=== PATIENT | female | born 2000 | race Caucasian/White ===

== ENCOUNTER 2021-03-08 15:57 | Emergency (ER) | payer BC, SELFPAY ==
[2021-03-08 15:58] VITALS: BP 169/117; PULSE 138; RESP 28; TEMP 36.1; O2SAT 96; BMI 46.5
--- NOTE | 2021-03-08 17:31 | EKG12_ITS ---
Test Reason : DKA Blood Pressure : / mmHG Vent. Rate : 113 BPM Atrial Rate : 113 BPM P-R Int : 116 ms QRS Dur : 082 ms QT Int : 322 ms P-R-T Axes : 033 050 000 degrees QTc Int : 441 ms Sinus tachycardia Otherwise normal ECG Confirmed by ELOY MCCAIN, PAT ([id number]), research editor NOY SPENCE ([id number]) on 03/11/2021 8:54:21 AM Referred By: MARGARITO Confirmed By:CHRISTIAN LYONS MD
[2021-03-08 17:41] LABS: Bedside Glucose 239 mg/dL (70-110)
[2021-03-08] MEDS: 0.9% Normal Saline 1,000 ML 999 ML IV (17:54)
[2021-03-08 18:03] LABS: Absolute Neutrophil Count 5.7 X10^3/uL (2.0-7.7); Basophil# 0.06 X10^3/uL; Basophil% 0.6 % (0-1); Hematocrit 43.7 % (37-47); Hemoglobin 14.1 g/dL (12.0-15.0); Lymphocyte % 33.5 % (19-41); Mean Corp Hgb Conc 32.3 g/dL (32-36); Mean Corpuscular Hgb 27.6 pg (27.0-32.0); Mean Corpuscular Volume 85.7 fL (81-99); Mean Platelet Vol. 9.7 fl (6.2-12.0); Monocyte# 0.67 X10^3/uL; Monocyte% 6.8 % (0-10); NRBC Flagged by Analyzer 0 % (0-5); Neutrophil # 5.66 X10^3/uL (2.7-7.7); Neutrophil % 57.6 % (47-70); Platelet Count 429 K/mm3 (150-450); RBC Distribution Width CV 12.5 % (11.6-14.6); RBC Distribution Width SD 38.7 fl (35.1-43.9); White Blood Count 9.8 K/mm3 (4.4-11.0)
[2021-03-08 18:08] VITALS: PULSE 110; RESP 32; O2SAT 97
[2021-03-08 18:09] LABS: Color, Urine Amber (Yellow); Glucose, Dipstick 250 mg/dl (Normal); Ketone-Dipstick 15 mg/dl (Negative); Leukocyte Esterase-Dipstick 25 /ul (Negative); Nitrite-Dipstick Positive (Negative); Occult Blood-Urine 250 /ul (Negative); Protein-Dipstick 500 mg/dl (Negative); Specific Gravity, Urine 1.025 (1.002-1.030); Urine Clarity Sl. Cloudy (Clear); Urine Urobilinogen 4 mg/dl (Normal)
[2021-03-08 18:13] LABS: Urine Bilirubin Dipstick 1 mg/dL (Negative)
[2021-03-08 18:15] LABS: Bacteria 1+ /hpf (None Seen); Mucous, Urine 1+ /hpf (<or=2+); Red Blood Cells-Urine > 100 SEEN /hpf (0-5); Squamous Epithelial Cells - UA 0-5 SEEN /hpf (5-10); White Blood Cells 0-5 SEEN /hpf (0-5)
[2021-03-08 18:23] LABS: AST(SGOT) 97 U/L (15-37); Alanine Aminotransfer ALT/SGPT 108 U/L (13-56); Albumin, Serum 4.3 g/dL (3.2-5.0); Alkaline Phosphatase 72 U/L (45-117); Anion Gap 12 (5-15); BUN 11 mg/dL (7-18); BUN/Creat Ratio 10.9 RATIO (10-20); Calcium,Total 9.9 mg/dL (8.5-10.1); Chloride 105 mmol/L (98-107); Creatinine, Serum 1.01 mg/dL (0.55-1.02); EST Glomerular Filtration Rate 74 mL/min (>60); Est Glom Filt Rate - Afr Amer 90 mL/min (>60); Estimated Creatinine Clearance 80.62 ml/min; Globulin 4.5 g/dL (2.2-4.2); Glucose 248 mg/dL (74-106); Magnesium 2.1 mg/dL (1.6-2.6); Potassium 3.9 mmol/L (3.5-5.1); Protein, Total 8.8 g/dL (6.4-8.2); Sodium Level 138 mmol/L (136-145); Troponin-I HS 4 pg/mL (3.0-54.0)
[2021-03-08] MEDS: Nitrofurantoin Macrocrystals 100 MG Capsule PO (18:41)
[2021-03-08 19:11] LABS: Bedside Glucose 212 mg/dL (70-110)
[2021-03-08 19:38] VITALS: PULSE 94; TEMP 36.7; O2SAT 99
--- NOTE | 2021-03-09 00:35 | EDS_ITS ---
HPI History of Present Illness Chief Complaint: General Illness Narrative Narrative: 20-year-old female presenting with hyperglycemia. She was referred here by saw her at school Dr. Coffey who started her on medications for her new onset diabetes but after obtaining blood work on her her anion gap was 2 over so we sent her to the emergency room. She states she had some nausea and vomited once yesterday. She states that she has been having problems with extensive vaginal bleeding and she saw her [employer] who put her on norethindrone. This has been improving but she states that she has urinary frequency. She had her urine tested and this showed glucose in the urine and she was referred for blood work which showed that she had new onset diabetes and she was noted to be hypertensive. She was started on lisinopril for her high blood pressure. She was also given oral antihyperglycemic's. She had just picked these up for she came. [facility] Medical History Vaginal bleeding Home Medications nitrofurantoin monohyd/m-cryst [Macrobid] 100 mg PO Q12H 5 Days #10 cap 03/08/21 [Rx Last Taken Unknown] norethindrone (contraceptive) 5 mg PO/SL DAILY 03/08/21 [History Last Taken Unknown] Allergy/AdvReac Type Severity Reaction Status Date / Time cefdinir Allergy Rash Verified 03/08/21 16:01 Surgical History History of tonsillectomy Social History Smoking Status: Current some day smoker tobacco type: e-cigarettes ROS ROS ED Constitutional Constitutional ED: Denies chills or fever(s) Eyes Eyes: Denies blurry vision or change in vision ENT ENT ED: Denies rhinorrhea or sore throat Cardiovascular Cardiovascular: Denies chest pain or palpitations Respiratory/Chest Respiratory/Chest: Denies cough or dyspnea Gastrointestinal Gastrointestinal: Reports nausea and vomiting; Denies abdominal pain Genitourinary Genitourinary ED: Reports dysuria and urinary frequency Musculoskeletal Musculoskeletal: Denies arthralgias or myalgias Integumentary Denies abscess or rash Neurologic Neurologic: Denies headache(s) or paresthesias Endocrine Endocrinology: Denies polydipsia, polyphagia or polyuria EXAM Physical Exam Const Vital Signs: 03/08/21 15:58 03/08/21 17:03 03/08/21 18:08 Temperature 97 F L Temperature Source Temporal Pulse Rate 138 H 110 H Respiratory Rate 28 H 32 H Respiratory Effort Normal Respiratory Pattern Normal Blood Pressure 169/117 H Blood Pressure Mean 134 Pulse Ox 96 97 Oxygen Delivery Method Room Air 03/08/21 19:38 Temperature 98.1 F Temperature Source Pulse Rate 94 Respiratory Rate Respiratory Effort Respiratory Pattern Blood Pressure Blood Pressure Mean Pulse Ox 99 Oxygen Delivery Method Positive well nourished General Appearance ED: NAD; Negative for pallor HEENT Reports moist mucous membranes Negative for trauma Eyes PERRL and EOMs intact bilaterally Chest Wall inspection of chest normal Resp normal respiratory effort and clear to auscultation bilaterally Cardio regular rate and regular rhythm GI normal to inspection, nondistended, normoactive bowel sounds Neuro oriented x3 and CN's II-XII intact bilaterally Sensorium / Orientation: alert Psych Mood & Affect: tearful Skin no rashes or lesions noted General Skin Exam: Negative for jaundice or pallor MDM MDM MDM Narrative Medical decision making narrative: Patient noted to be significantly tachycardic. When I entered the room she was tearful because she did not know why she was here. She states that Dr. Coffey apparently tried to call her and after 30 minutes did not hear from her and sent security from the [employer] to her room and and she was referred to the ER. She has her medications here. I reviewed her blood work and she did have some urine ketones and thousand glucose in her urine. Her anion gap was only 2 over. She is not having polyuria polydipsia polyphagia. I spoke with Dr. Coffey who had concern that she would not have follow-up over the weekend and wanted to make sure that her anion gap but not gotten worse. Patient tested here today and her CBC is normal. BMP does not show any anion gap her glucose is 248. Her AST is 97 ALT is 108 otherwise is normal. Troponin is normal. EKG on my interpretation on my interpretation shows a sinus rhythm ventricular rate of 113 bpm without sign of ischemic change or dysrhythmia. I did recheck her urine because she is symptomatic and this is positive for nitrites and patient is started on Macrobid for UTI. After a liter of fluids her heart rate is now 94 since her anion gap is closed I recommended that she start her oral diabetic medication. I did speak with her Dr. Coffey again and he is comfortable for follow-up outpatient next week. Patient will be discharged home in stable condition. Impression: 1. New onset diabetes 2. UTI Lab Data Attestation: I reviewed the patient's lab results. Labs: Laboratory Results - last 24 hr 03/08/21 03/08/21 03/08/21 17:33 17:50 17:50 WBC RBC Hgb Hct MCV MCH MCHC RDW Std Deviation RDW Coeff of Solo Plt Count MPV Immature Gran % (Auto) Neut % (Auto) Lymph % (Auto) [place] % (Auto) Eos % (Auto) Baso % (Auto) Absolute Neuts (auto) Absolute Lymphs (auto) Nucleated RBC % Sodium 138 Potassium 3.9 Chloride 105 Carbon Dioxide 21.0 Anion Gap 12 BUN 11 Creatinine 1.01 Estim Creat Clear Calc 80.62 Est GFR (MDRD) Af Amer 90 Est GFR (MDRD) Non-Af 74 BUN/Creatinine Ratio 10.9 Glucose 248 H Calcium 9.9 Magnesium 2.1 Total Bilirubin 0.70 AST 97 H ALT 108 H Alkaline Phosphatase 72 Troponin I High Sens 4 Total Protein 8.8 H Albumin 4.3 Globulin 4.5 H Albumin/Globulin Ratio 1.0 Urine Color Urine Clarity Urine pH Ur Specific [place] Urine Protein Urine Glucose (UA) Urine Ketones Urine Occult Blood Urine Nitrite Urine Bilirubin Urine Urobilinogen Ur Leukocyte Esterase Urine RBC Urine WBC Ur Squamous Epith Cells Urine Bacteria Urine Mucus Acetone Level NEGATIVE POC Glucose 239 H 03/08/21 03/08/21 03/08/21 17:50 17:50 17:50 WBC 9.8 RBC 5.10 Hgb 14.1 Hct 43.7 MCV 85.7 MCH 27.6 MCHC 32.3 RDW Std Deviation 38.7 RDW Coeff of Solo 12.5 Plt Count 429 MPV 9.7 Immature Gran % (Auto) 0.500 Neut % (Auto) 57.6 Lymph % (Auto) 33.5 [place] % (Auto) 6.8 Eos % (Auto) 1.0 Baso % (Auto) 0.6 Absolute Neuts (auto) 5.7 Absolute Lymphs (auto) 3.30 Nucleated RBC % 0 Sodium Cancelled Potassium Cancelled Chloride Cancelled Carbon Dioxide Cancelled Anion Gap Cancelled BUN Cancelled Creatinine Cancelled Estim Creat Clear Calc Cancelled Est GFR (MDRD) Af Amer Cancelled Est GFR (MDRD) Non-Af Cancelled BUN/Creatinine Ratio Cancelled Glucose Cancelled Calcium Cancelled Magnesium Total Bilirubin AST ALT Alkaline Phosphatase Troponin I High Sens Total Protein Albumin Globulin Albumin/Globulin Ratio Urine Color [place] Urine Clarity Sl. Cloudy Urine pH 6.0 Ur Specific [place] 1.025 Urine Protein 500 H Urine Glucose (UA) 250 H Urine Ketones 15 H Urine Occult Blood 250 H Urine Nitrite Positive H Urine Bilirubin 1 H Urine Urobilinogen 4 H Ur Leukocyte Esterase 25 H Urine RBC > 100 SEEN Urine WBC 0-5 SEEN Ur Squamous Epith Cells 0-5 SEEN Urine Bacteria 1+ Urine Mucus 1+ Acetone Level POC Glucose 03/08/21 19:07 WBC RBC Hgb Hct MCV MCH MCHC RDW Std Deviation RDW Coeff of Solo Plt Count MPV Immature Gran % (Auto) Neut % (Auto) Lymph % (Auto) [place] % (Auto) Eos % (Auto) Baso % (Auto) Absolute Neuts (auto) Absolute Lymphs (auto) Nucleated RBC % Sodium Potassium Chloride Carbon Dioxide Anion Gap BUN Creatinine Estim Creat Clear Calc Est GFR (MDRD) Af Amer Est GFR (MDRD) Non-Af BUN/Creatinine Ratio Glucose Calcium Magnesium Total Bilirubin AST ALT Alkaline Phosphatase Troponin I High Sens Total Protein Albumin Globulin Albumin/Globulin Ratio Urine Color Urine Clarity Urine pH Ur Specific [place] Urine Protein Urine Glucose (UA) Urine Ketones Urine Occult Blood Urine Nitrite Urine Bilirubin Urine Urobilinogen Ur Leukocyte Esterase Urine RBC Urine WBC Ur Squamous Epith Cells Urine Bacteria Urine Mucus Acetone Level POC Glucose 212 H Discharge Plan Triage Chief Complaint: General Illness ED Provider: Mann Mccrary Dx/Rx/DC Orders Instructions: ED Diabetes- Overview, ED Diabetic Hyperglycemia, ED CYSTITIS Female Adult Prescriptions: New nitrofurantoin monohyd/m-cryst [Macrobid] 100 mg capsule 100 mg PO Q12H 5 Days Qty: 10 RF: 0 No Action norethindrone (contraceptive) 5 mg PO/SL DAILY RF: 0 Primary Care Provider: Tima Pratt Referrals: Tima Pratt MD [Primary Care Provider] - Disposition Disposition: Home, Self Care Discharge Date/Time: 03/08/21 19:39
== END 2021-03-08 19:39 | disposition home or self-care (01) ==
PROVIDERS: Emergency Provider Student in an Organized Health Care Education/Training Program; PCP Pediatrics
DX: N39.0 Urinary tract infection, site not specified (principal); E11.10 Type 2 diabetes mellitus with ketoacidosis without coma; I10 Essential (primary) hypertension
CPT/HCPCS: 80053; 81001; 82009; 82962; 83735; 84484; 85025; 93005; 99284; J7030

== ENCOUNTER 2023-07-27 17:25 | Emergency (ER) | payer BC, SELFPAY ==
[2023-07-27 17:25] VITALS: BP 162/97; PULSE 114; RESP 20; TEMP 36.2; O2SAT 97; BMI 44.8
--- NOTE | 2023-07-27 18:00 | ED.VIS.GI ---
HPI HPI - GI History of Present Illness Chief Complaint: Nausea/Vomiting Narrative Narrative: 23-year-old female past medical history of diabetes, on oral medication, presents with nausea, vomiting, and diarrhea that began around 4:00 this morning, approximately 18 hours ago. She states she awoke from sleep and she vomited food the first few times, then bile. She denies any lucinda hematemesis. She states she has had 2 episodes of diarrhea that started later in the day. She denies any abdominal pain. No fevers or chills, no other symptoms. No exacerbating or alleviating factors. PFSH PFSH Medical History Vaginal bleeding Home Medications nitrofurantoin monohydrate/macrocrystals 100 mg capsule (Macrobid) 100 mg PO Q12H 5 days #10 caps 03/08/21 [Rx Last Taken Unknown] norethindrone (contraceptive) 5 mg PO/SL DAILY 03/08/21 [History Last Taken Unknown] ondansetron 4 mg disintegrating tablet 4 mg PO Q6H PRN nausea and vomiting #10 tabs 07/27/23 [Rx Last Taken Unknown] Allergy/AdvReac Type Severity Reaction Status Date / Time cefdinir Allergy Rash Verified 03/08/21 16:01 Surgical History History of tonsillectomy Social History Smoking Status: Current some day smoker tobacco type: e-cigarettes ROS ROS ED ROS Narrative Constitutional: No fever, no chills. HEENT: No sore throat. No neck pain. No loss of vision. No rhinorrhea. Cardiovascular: No chest pain. No palpitations. No pedal edema. Respiratory: No cough, no shortness of breath. Abdominal: No abdominal pain. Positive nausea and vomiting. 2 episodes of diarrhea. No lucinda hematemesis. Genitourinary: No dysuria. No hematuria. Musculoskeletal: No myalgias. No arthralgias. Neurologic: No headaches. No dizziness. No lightheadedness. Skin: No rash. No change in color. Psychiatric: No depression. No anxiety. EXAM Physical Exam Narrative Exam Narrative: Afebrile. Vital signs noted. HEENT: Normocephalic. Atraumatic. PERRL, EOMI. Neck soft and supple. No point tenderness or step off. Cardiovascular: Regular rate and rhythm with intermittent tachycardia. No murmurs, rubs, or gallops appreciated. Respiratory: No tachypnea. Lungs clear to auscultation bilaterally. Gastrointestinal: Abdomen soft, nontender, with normoactive bowel sounds. No rebound or guarding. Neurological: Awake. Alert. Nonfocal, nonlateralizing. Skin: No rash. Normal color. No pallor. Musculoskeletal: No pedal edema. Full range of motion extremities. Const Vital Signs: 07/27/23 17:25 07/27/23 17:25 Temperature 97.1 F L Temperature Source Temporal Pulse Rate 114 H Respiratory Rate 20 H Blood Pressure 162/97 H Blood Pressure Mean 118 Pulse Ox 97 Oxygen Delivery Method Room Air MDM MDM MDM Narrative Medical decision making narrative: Concern is for hyperosmolar nonketotic syndrome given her diabetes versus gastroenteritis as she has had nausea, vomiting, and diarrhea. Lower on the differential would be pancreatitis, but the history and physical does not support this because she is not having epigastric pain. She has had no abdominal surgeries so I doubt small bowel obstruction. She will be administered normal saline 1 L intravenously, along with Zofran intravenously. I will check her other electrolytes although her oblfa-pr-lfoq glucose is 100. I will check a lipase to help rule out pancreatitis. Serum will be obtained as well to rule out as a cause of her nausea and vomiting. I reviewed her laboratory work and she has a leukocytosis of 18.4, but states that this is chronic for her, and then may be demargination from her vomiting. Hemoglobin normal at 13.2 with hematocrit 41.1, platelet count normal at 398. Electrolyte panel shows no evidence of dehydration with a sodium of 137, potassium normal at 4.3, BUN of 11, and creatinine normal at 0.87. Serum test is negative. At this point in time, and reexamination at approximately 1920, there is been no vomiting in the ED and she feels improved. At this point in time, I will write her a prescription for a few Zofran ODT's. She will start a clear liquid diet and advance as tolerated. I do not feel she requires admission or any imaging at this time. She was reassured. Return instructions to the emergency department were reviewed. Disposition is discharged home in stable condition. History & Record Review Discussion w/independent historian: Patient Lab Data Attestation: I reviewed the patient's lab results. Labs: Laboratory Results - last 24 hr 07/27/23 07/27/23 17:40 18:05 WBC 18.4 H RBC 4.95 Hgb 13.2 Hct 41.1 MCV 83.0 MCH 26.7 L MCHC 32.1 RDW Std Deviation 42.3 RDW Coeff of Solo 14.0 Plt Count 398 MPV 8.9 Immature Gran % (Auto) 0.500 Neut % (Auto) 85.5 H Lymph % (Auto) 8.0 L [place] % (Auto) 5.4 Eos % (Auto) 0.2 Baso % (Auto) 0.4 Absolute Neuts (auto) 15.7 H Absolute Lymphs (auto) 1.47 Nucleated RBC % 0 Sodium 137 Potassium 4.3 Chloride 107 Carbon Dioxide 22.0 Anion Gap 8 BUN 11 Creatinine 0.87 Estim Creat Clear Calc 133.03 Est GFR (MDRD) Af Amer 105 Est GFR (MDRD) Non-Af 87 BUN/Creatinine Ratio 12.7 Glucose 106 Calcium 9.5 Total Bilirubin 0.60 AST 21 ALT 47 Alkaline Phosphatase 51 Total Protein 7.9 Albumin 4.0 Globulin 3.9 Albumin/Globulin Ratio 1.0 Lipase 40 Serum , Qual NEGATIVE POC Glucose 100 Discharge Plan Triage Chief Complaint: Nausea/Vomiting ED Provider: Abdirizak Hawley Dx/Rx/DC Orders Clinical Impression: Diabetes, Nausea and vomiting Instructions: ED Diet Vomiting Diarrhea, ED Vomiting (Adult) Prescriptions: New ondansetron 4 mg tablet,disintegrating 4 mg PO Q6H PRN (Reason: nausea and vomiting) Qty: 10 0RF No Action norethindrone (contraceptive) 5 mg PO/SL DAILY nitrofurantoin monohyd/m-cryst [Macrobid] 100 mg capsule 100 mg PO Q12H 5 Days Qty: 10 0RF Rx Instructions: must administer with a meal/food Primary Care Provider: Tima Pratt Referrals: Tima Pratt MD [Primary Care Provider] - 3-5 Days if not improving Disposition Disposition: Home, Self Care
[2023-07-27] MEDS: Ondansetron 4 MG/2 ML Vial IV (18:06)
[2023-07-27] MEDS: 0.9% Normal Saline (1000mL) 1,000 ML 1000 ML IV (18:06)
[2023-07-27 18:07] LABS: Bedside Glucose 100 mg/dL (74-106)
[2023-07-27 18:14] LABS: Absolute Lymphocyte Count 1.47 X10^3/uL (0.83-4.51); Absolute Neutrophil Count 15.7 X10^3/uL (2.0-7.7); Basophil# 0.07 X10^3/uL; Basophil% 0.4 % (0-1); Eosinophil# 0.03 X10^3/uL; Eosinophils% 0.2 % (0-5); Hematocrit 41.1 % (37-47); Hemoglobin 13.2 g/dL (12.0-15.0); Lymphocyte # 1.47 X10^3/ul (0.83-4.51); Mean Corp Hgb Conc 32.1 g/dL (32-36); Mean Corpuscular Hgb 26.7 pg (27.0-32.0); Mean Platelet Vol. 8.9 fl (6.2-12.0); Monocyte% 5.4 % (0-10); NRBC Flagged by Analyzer 0 % (0-5); Neutrophil # 15.69 X10^3/uL (2.7-7.7); Neutrophil % 85.5 % (47-70); Platelet Count 398 K/mm3 (150-450); RBC Distribution Width SD 42.3 fl (35.1-43.9); Red Blood Count 4.95 M/mm3 (4.2-5.4); White Blood Count 18.4 K/mm3 (4.4-11.0)
[2023-07-27 18:26] LABS: Internal QC Validated? YES +Cl - CLEAR BKGD; Pregnancy, Serum, hCG Quali. NEGATIVE Negative
[2023-07-27 18:55] LABS: AST(SGOT) 21 U/L (15-37); Alanine Aminotransfer ALT/SGPT 47 U/L (13-56); Alkaline Phosphatase 51 U/L (45-117); Anion Gap 8 (5-15); BUN 11 mg/dL (7-18); BUN/Creat Ratio 12.7 RATIO (10-20); Calcium,Total 9.5 mg/dL (8.5-10.1); Chloride 107 mmol/L (98-107); Creatinine, Serum 0.87 mg/dL (0.55-1.02); EST Glomerular Filtration Rate 87 mL/min (>60); Est Glom Filt Rate - Afr Amer 105 mL/min (>60); Estimated Creatinine Clearance 133.03 ml/min; Globulin 3.9 g/dL (2.2-4.2); Glucose 106 mg/dL (74-106); Lipase 40 U/L (13-75); Potassium 4.3 mmol/L (3.5-5.1); Protein, Total 7.9 g/dL (6.4-8.2); Sodium Level 137 mmol/L (136-145)
[2023-07-27 19:25] VITALS: BP 132/87; PULSE 65; RESP 16; TEMP 36.7; O2SAT 99
== END 2023-07-27 19:33 | disposition home or self-care (01) ==
PROVIDERS: Emergency Provider Emergency Medicine; PCP Pediatrics; Visit Provider Emergency Medicine
DX: R11.2 Nausea with vomiting, unspecified (principal); E11.9 Type 2 diabetes mellitus without complications; Z79.899 Other long term (current) drug therapy; Z79.3 Long term (current) use of hormonal contraceptives; F17.290 Nicotine dependence, other tobacco product, uncomplicated
CPT/HCPCS: 80053; 82962; 83690; 84703; 85025; 96361; 96374; 99283; J7030; A4216; J2405